=== PATIENT | female | born 1940 | race Caucasian/White ===

== ENCOUNTER → 2024-04-26 09:38 | Outpatient (REF) | payer MEDICARE, BC, SELFPAY | LOC: HWRAD 09:38 | PROVIDERS: ATTENDING PHYSICIAN Internal Medicine Cardiovascular Disease; FAMILY PHYSICIAN Nurse Practitioner Primary Care | DX: I77.810 Thoracic aortic ectasia (principal); M85.89 Other specified disorders of bone density and structure, multiple sites | CPT/HCPCS: 71250; 77080 ==

== ENCOUNTER → 2024-11-04 11:34 | Outpatient (REF) | payer MEDICARE, BC, SELFPAY | LOC: HWWDC 11:34 | PROVIDERS: ATTENDING PHYSICIAN Nurse Practitioner Primary Care | DX: Z12.31 Encounter for screening mammogram for malignant neoplasm of breast (principal) | CPT/HCPCS: 77063; 77067 ==

== ENCOUNTER → 2024-11-08 08:28 | Outpatient (REF) | payer MEDICARE, BC, SELFPAY ==
[2024-11-08 10:01] LABS: % Basophils 0.7 % (0-2); % Eosinophils 0.7 % (0-6); % Immature Granulocytes 0.2 % (0-0.5); % Lymphocytes 11.8 % (20.5-51.1); % Monocytes 6.5 % (1.7-9.3); % Neutrophils 80.1 % (42.2-75.2); Absolute Lymphocytes 0.7 10^3/uL (1.2-3.4); Absolute Monocytes 0.4 10^3/uL (0.1-0.6); Absolute Neutrophils 4.6 10^3/uL (1.4-6.5); Hematocrit 43.8 % (37.0-47.0); Hemoglobin 14.4 g/dL (12.0-16.0); Mean Corp Hgb Conc. 32.9 g/dL (33.0-37.0); Mean Corpuscular Hgb 33.3 pg (27.0-31.0); Mean Corpuscular Volume 101.4 fL (81.0-99.0); Mean Platelet Volume 9.6 fL (7.4-10.4); Nucleated Red Blood Cells % 0 %; Platelet Count 231 10^3/uL (130-400); Red Blood Cell Count 4.32 10^6/uL (4.20-5.40); Red Cell Dist. Width 12.4 % (11.5-14.5); White Blood Cell Count 5.7 10^3/uL (4.8-10.8)
[2024-11-08 10:49] LABS: ALT (SGPT) 12 U/L (0-35); AST (SGOT) 28 U/L (14-36); Albumin 4.6 g/dl (3.5-5.0); Alkaline Phosphatase 108 U/L (38-126); Blood Urea Nitrogen 16 mg/dl (7-17); Calcium 9.4 mg/dl (8.4-10.2); Carbon Dioxide 32 mmol/L (22-30); Chloride 94 mmol/L (98-107); Glucose 85 mg/dl (70-99); Magnesium 1.7 mg/dl (1.6-2.3); Potassium 4.1 mmol/L (3.5-5.1); Sodium 139 mmol/L (135-145); Total Bilirubin 1.2 mg/dl (0.2-1.3); Total Cholesterol 245 mg/dl (50-199); Total Protein 7.5 g/dl (6.3-8.2); Triglyceride 88 mg/dl (10-149); Very Low Density Lipoprotein 17 mg/dl (0-30); eGFR > 60.00
[2024-11-08 11:04] LABS: HDL Cholesterol 134 mg/dl; LDL Cholesterol, Calculated 94 mg/dl
[2024-11-08 12:07] LABS: Vitamin D, 25-OH*** 36.1 ng/mL (30-80)
[2024-11-08 12:21] LABS: TSH Reflex To Free T4 2.62 uIU/ml (0.47-4.68)
[2024-11-08 12:40] LABS: Vitamin B12 316 pg/ml (239-931)
== END ==
LOC: WDC 08:28
PROVIDERS: ATTENDING PHYSICIAN Nurse Practitioner Primary Care
DX: I10 Essential (primary) hypertension (principal); E78.2 Mixed hyperlipidemia; R41.3 Other amnesia; E53.8 Deficiency of other specified B group vitamins; E55.9 Vitamin D deficiency, unspecified; R92.8 Other abnormal and inconclusive findings on diagnostic imaging of breast
CPT/HCPCS: 36415; 76642; 80053; 80061; 82306; 82607; 83735; 84443; 85025

== ENCOUNTER → 2024-11-18 07:48 | Outpatient (REF) | payer MEDICARE, BC, SELFPAY ==
--- NOTE | 2024-11-18 14:22 | OID.BR.INTR ---
[facility] Breast Navigator - Initial
- -
Date of Contact: 11/18/24
Met with patient. Patient given written information on navigator services available at [facility]. Will follow up as needed per protocol.
== END ==
LOC: WDC 07:48
PROVIDERS: ATTENDING PHYSICIAN Nurse Practitioner Primary Care
DX: N63.12 Unspecified lump in the right breast, upper inner quadrant (principal)
CPT/HCPCS: 88305; 19083; 88341; 88342; 88360; A4648

== ENCOUNTER → 2024-12-04 10:11 | Day surgery (SDC) | payer MEDICARE, BC, SELFPAY | LOC: SDSPAT 10:11 | PROVIDERS: ATTENDING PHYSICIAN Surgery; FAMILY PHYSICIAN Nurse Practitioner Primary Care | DX: Z01.810 Encounter for preprocedural cardiovascular examination (principal); I44.4 Left anterior fascicular block | CPT/HCPCS: 93005; 36415 ==

== ENCOUNTER → 2024-12-09 07:40 | Outpatient (REF) | payer MEDICARE, BC, SELFPAY | LOC: WDC 07:40 | PROVIDERS: ATTENDING PHYSICIAN Surgery | DX: C50.411 Malignant neoplasm of upper-outer quadrant of right female breast (principal) | CPT/HCPCS: 19285; A4648 ==

== ENCOUNTER 2024-12-10 06:47 | Day surgery (SDC) | payer MEDICARE, BC, SELFPAY ==
[2024-12-04 14:31] VITALS: BMI 18.4
[2024-12-10] VITALS (7 sets, daily range): BP systolic 139–154; BP diastolic 81–91; BMI 17.3
[2024-12-10] MEDS: TYLENOL 1000 MG PO (08:14)
[2024-12-10] MEDS: NORMOSOL-R/PLASMALYTE-A 1000 IV (08:15)
[2024-12-10] MEDS: LOVENOX 40 MG SC (08:50)
--- NOTE | 2024-12-10 10:05 | W.IMMPOSTOP ---
Surgical Immed Post Op Note
-
Primary Surgeon: Adina
Assisting Surgeon: None
Pre-op Diagnosis: Right breast ca
Post-op Diagnosis: jRight breast ca
Procedure Performed: Right localized lumpectomy
Anesthesia Type:TIVA
Specimen / Cultures: Right lumpectomy, margins
Estimated Blood Loss: 4cc
Complications: None
Operative Findings: Clip and reflector in specimen
--- NOTE | 2024-12-10 10:06 | OR.RPT ---
Operative Report
Operative Report
Pre-Op DX: Right breast carcinoma
Post-Op DX: Right breast carcinoma
Procedure: Right localized lumpectomy
Surgeon: Adina
The patient is an 84-year-old female with early-stage favorable right breast carcinoma who met criteria for lumpectomy only and presents for right localized lumpectomy. On the day prior to the procedure the patient presented to the breast center
where Samantha beam builder reflector was placed in the appropriate position. On the day of surgery she presented to same-day surgical unit was prepped. DVT and antibiotic prophylaxis were provided and she was taken to the operating room. In the supine
position intravenous sedation was delivered. The right breast was prepped and draped in the usual sterile fashion. An appropriate time out procedure was performed. Tissues were anesthetized with 1% lidocaine plain. A curvilinear incision was
made overlying the area of highest Samantha beam builder signal. Skin flaps were elevated with the cautery and hemostasis was maintained with the cautery or 3-0 silk suture ligature. Otherwise lumpectomy was performed using the cautery. Time out of body was
noted and the specimen was oriented for the pathologist. Specimen radiography confirmed the presence of biopsy clip and Samantha reflector within it. Additional margins were harvested for permanent analysis from the posterior, medial, superior,
lateral, inferior, and anterior dimensions. These were oriented as well. Hemostasis was carefully maintained. Hemoclips were placed in the resection cavity. A portion of Surgicel was placed in the cavity and Marcaine 0.5% plain was instilled
into the oral tissues. The wound was closed in multiple layers using simple interrupted 3-0 plain and subcutaneous tissue skin was closed using simple interrupted 3-0 Vicryl and a running subcuticular 4-0 Monocryl. Surgical glue sterile
compressive dressing were applied. All sponge needle and instrument counts were correct and the patient was transferred to the recovery room in stable condition.
()
== END 2024-12-10 11:37 | disposition home or self-care (01) ==
LOC: SDS 06:47
PROVIDERS: ATTENDING PHYSICIAN Surgery
DX: C50.911 Malignant neoplasm of unspecified site of right female breast (principal); N60.91 Unspecified benign mammary dysplasia of right breast; Z17.0 Estrogen receptor positive status [ER+]
CPT/HCPCS: 19301; 88305; 88307; 76098; A4648

== ENCOUNTER → 2025-04-05 09:17 | Outpatient (REF) | payer MEDICARE, SELFPAY ==
[2025-04-05 09:47] LABS: % Basophils 0.7 % (0-2); % Eosinophils 1.4 % (0-6); % Lymphocytes 13.4 % (20.5-51.1); % Monocytes 9.1 % (1.7-9.3); % Neutrophils 75.4 % (42.2-75.2); Absolute Eosinophils 0.1 10^3/uL (0-0.7); Absolute Lymphocytes 0.8 10^3/uL (1.2-3.4); Absolute Monocytes 0.5 10^3/uL (0.1-0.6); Absolute Neutrophils 4.4 10^3/uL (1.4-6.5); Hematocrit 40.3 % (37.0-47.0); Hemoglobin 13.5 g/dL (12.0-16.0); Mean Corp Hgb Conc. 33.5 g/dL (33.0-37.0); Mean Corpuscular Hgb 33.3 pg (27.0-31.0); Mean Corpuscular Volume 99.3 fL (81.0-99.0); Mean Platelet Volume 9.5 fL (7.4-10.4); Nucleated Red Blood Cells % 0 %; Platelet Count 249 10^3/uL (130-400); Red Blood Cell Count 4.06 10^6/uL (4.20-5.40); Red Cell Dist. Width 13.1 % (11.5-14.5); White Blood Cell Count 5.8 10^3/uL (4.8-10.8)
[2025-04-05 11:31] LABS: TSH Reflex To Free T4 2.95 uIU/ml (0.47-4.68)
[2025-04-05 11:37] LABS: ALT (SGPT) 11 U/L (0-35); AST (SGOT) 23 U/L (14-36); Albumin 4.5 g/dl (3.5-5.0); Alkaline Phosphatase 102 U/L (38-126); Blood Urea Nitrogen 20 mg/dl (7-17); Calcium 9.2 mg/dl (8.4-10.2); Carbon Dioxide 32 mmol/L (22-30); Chloride 96 mmol/L (98-107); Glucose 102 mg/dl (70-99); Potassium 3.9 mmol/L (3.5-5.1); Sodium 138 mmol/L (135-145); Total Protein 7.4 g/dl (6.3-8.2); eGFR > 60.00
[2025-04-05 12:06] LABS: Vitamin B12 407 pg/ml (239-931)
== END ==
LOC: REG 09:17
PROVIDERS: ATTENDING PHYSICIAN Nurse Practitioner Primary Care
DX: I10 Essential (primary) hypertension (principal); E53.8 Deficiency of other specified B group vitamins; R63.4 Abnormal weight loss
CPT/HCPCS: 36415; 80053; 82607; 82746; 84443; 85025

== ENCOUNTER → 2025-04-08 09:00 | Outpatient (REF) | payer MEDICARE, SELFPAY | LOC: WDC 09:00 | PROVIDERS: ATTENDING PHYSICIAN Nurse Practitioner Primary Care | DX: N63.10 Unspecified lump in the right breast, unspecified quadrant (principal); N63.12 Unspecified lump in the right breast, upper inner quadrant | CPT/HCPCS: 76642; 77061; 77065 ==

== ENCOUNTER → 2025-04-11 07:44 | Outpatient (REF) | payer MEDICARE, SELFPAY | LOC: RAD 07:44 | PROVIDERS: ATTENDING PHYSICIAN Nurse Practitioner Primary Care | DX: R63.4 Abnormal weight loss (principal); C50.411 Malignant neoplasm of upper-outer quadrant of right female breast | CPT/HCPCS: 71260; 74177; Q9967 ==

== ENCOUNTER → 2025-04-23 08:11 | Outpatient (REF) | payer MEDICARE, SELFPAY | LOC: HWRAD 08:11 | PROVIDERS: ATTENDING PHYSICIAN Nurse Practitioner Primary Care | DX: N94.9 Unspecified condition associated with female genital organs and menstrual cycle (principal); R93.89 Abnormal findings on diagnostic imaging of other specified body structures; R63.4 Abnormal weight loss; Z85.3 Personal history of malignant neoplasm of breast | CPT/HCPCS: 76830; 76856 ==

== ENCOUNTER → 2025-05-07 08:14 | Outpatient (REF) | payer MEDICARE, SELFPAY | LOC: HWRCS 08:14 | PROVIDERS: ATTENDING PHYSICIAN Nurse Practitioner Primary Care | DX: I10 Essential (primary) hypertension (principal); I71.21 Aneurysm of the ascending aorta, without rupture | CPT/HCPCS: 93306 ==